=== PATIENT | male | born 1990 | race Caucasian/White ===

== ENCOUNTER 2017-10-13 11:44 | Emergency (ER) | payer MEDICAID, OTHER ==
[~2017-10-13] VITALS: Ht 180.3 cm; Wt 72.7 kg
[2017-10-13] MEDS ORDERED: IBUP-2354 PO (11:49)
[2017-10-13 12:43] VITALS: BP 134/91
== END 2017-10-13 12:53 | disposition home or self-care (01) ==
LOC: EMS 11:45
DX: S80.01XA Contusion of right knee, initial encounter (principal); R03.0 Elevated blood-pressure reading, without diagnosis of hypertension; F12.90 Cannabis use, unspecified, uncomplicated; W22.8XXA Striking against or struck by other objects, initial encounter; Y93.89 Activity, other specified; Y92.89 Other specified places as the place of occurrence of the external cause; Y99.8 Other external cause status
CPT/HCPCS: 29505; 99283